=== PATIENT | female | born 1980 ===

== ENCOUNTER 2018-05-28 09:15 | Day surgery (SDC) | payer OTHER ==
[~2018-05-28] VITALS: Ht 162.6 cm; Wt 56.7 kg
[2018-05-28] VITALS (7 sets, daily range): BP systolic 111–139; BP diastolic 65–94
[~2018-05-28 09:15] MED LIST: Atropine Sulfate 0.4mg/ml inj IVP PRN; DiphenhydrAMINE 50mg/ml Inj IVP PRN; FERROUS SULFAT325 MG ORAL; Midazolam 2mg/2ml Inj IVP PRN; NORCO 10-325 T1 EACH ORAL; OMEPRAZOLE40 M1 ORAL; ZANTAC150 MG ORAL; fentaNYL 100 mcg/2 mL IV PRN
--- NOTE | 2018-05-28 10:37 | Short Stay Surgery H&P ---
History of Present Illness History of Present Illness Chief Complaint Abdominal pains/rectal bleeding/diarrhea HPI Dorota Uribe is a 38 year old female who was admitted on for Abdominal Pain, Gerd/diarrhea/rectal bleeding/GERDs Patient History Allergies: Coded Allergies: SUMATRIPTAN (Verified Adverse Reaction, Severe, Severe headache , 05/27/18) Medication History Scheduled Ferrous Sulfate* (Ferrous Sulfate*), 325 MG ORAL DAILY, (Reported) Omeprazole (Omeprazole), 40 MG ORAL DAILY, (Reported) Ranitidine Hcl* (Zantac*), 150 MG ORAL DAILY, (Reported) Scheduled PRN Hydrocodone Bit/Acetaminophen 10-325* ([place] 10-325*), 1 TAB ORAL QHS PRN for For Pain, (Reported) Review of Systems Cardiovascular: Reports: no symptoms Respiratory: Reports: no symptoms Skeletal: Reports: trauma Gastrointestinal: Reports: gastro esophageal reflux disease Genitourinary: Reports: no symptoms Neurologic: Reports: no symptoms Endocrine: Reports: no symptoms Hematologic: Reports: no symptoms, anemia Physical Exam HENT: normal Heart: normal Lungs: normal Abdomen: abnormal Extremities: normal Genitourinary: normal Plan Plan of Care Upper and lower GI endoscopies with obtaining biopsies Preop Interventions None Summary of Findings see the reports Attestation Are the patient's medical conditions optimized for surgery? Attestation Response: yes Mina Ellis MD May 28, 2018 10:37
--- NOTE | 2018-05-28 10:38 | Pre-Procedure Note/Attestation ---
Pre-Procedure Note/Attestation Complete Prior to Procedure Planned Procedure: left Procedure Narrative: Examiantion of the upper and the lower GI tract via endoscopy Indications for Procedure Pre-Operative Diagnosis: R/O Peptic Ulcer/Ulcers/colitis/hemorrhoids Attestation I attest that I discussed the nature of the procedure; its benefits; risks and complications; and alternatives (and the risks and benefits of such alternatives ), prior to the procedure, with the patient (or the patient's legal telemarketing sales representative). I attest that, if there was a reasonable possibility of needing a blood transfusion, the patient (or the patient's legal telemarketing sales representative) was given the [facility] standardized written summary, pursuant to the Mahesh Barnwell Blood Safety Act ([place] Health and Safety Code # 1645, as amended). I attest that I re-evaluated the patient just prior to the surgery and that there has been no change in the patient's H&P, except as documented below: Mina Ellis MD May 28, 2018 10:38
[2018-05-28] MEDS ORDERED: Propofol 200mg/20ml IV ONE (11:30)
[2018-05-28] MEDS ORDERED: LR 1000ml ONE (11:30)
[2018-05-28] MEDS ORDERED: Esmolol 100mg/10ml Inj ONE (11:30)
[2018-05-28] MEDS ORDERED: Lidocaine 1% MPF 10mg/ml 5ml ONE (11:30)
--- NOTE | 2018-05-28 11:32 | Discharge Instructions ---
Discharge Instructions Discharge Instructions Follow up with: visit the doctor after 2 weeks in the office, call first For Congestive Heart Failure Reminder Report to your physician any weight gain of 5 pounds or more in one week. Mina Ellis MD May 28, 2018 11:31
--- NOTE | 2018-05-28 12:24 | Endoscopy Procedure Note ---
Endoscopy Procedure Note General Indication for Procedure: Abdominal pains/GERDs, rectal bleeding/diarrhea Procedures Performed: EGD - Small allen's segment biopsed; otherwise completely normal upper GI. endoscopy, biopsy was done per random from gastric body., colonoscopy - Minimal Internal hermorrhoids otherwise completely normal total colonoscopy. Specimen: yes Pt Tolerated Procedure Well: Yes Estimated Blood Loss: none Anesthesia Anesthesiologist: Dr. Raya Anesthesia: moderate sedation Medications Medication Given: see anesthesia record Inserted Devices Implant(s) used?: No Quality Quality of Bowel Preparation: Excellent Did scope reach the cecum?: Yes Was there any complications?: No GI Core Measures 50 yrs or older w/o bx or poly: No 10yrs. F/U not recommended: No 10 yrs. F/U needed: Yes 18 years or older w/prev. colo: No <3yrs. since last colonoscopy: No Med reason:<3 yrs.: System Reason:<3 yrs.: Mina Ellis MD May 28, 2018 12:24
--- NOTE | 2018-05-28 13:02 | Anethesia Preoperative Eval ---
Anesthesia Pre-op PMH/ROS General Date of Evaluation: May 28, 2018 Time of Evaluation: 11:24 Anesthesiologist: tonio ASA Score: ASA 3 Mallampati Score Class I : Soft palate, uvula, fauces, pillars visible Class II: Soft palate, uvula, fauces visible Class III: Soft palate, base of uvula visible Class IV: Only hard plate visible Mallampati Classification: Class II Surgeon: rosario Diagnosis: abdominal pain, gerd Surgical Procedure: egd/colonoscopy Anesthesia History: none Social History: smoking - former smoker Family History: no anesthesia problems Allergies: Coded Allergies: SUMATRIPTAN (Verified Adverse Reaction, Severe, Severe headache , 05/27/18) Medications: see eMAR Patient NPO?: Yes Past Medical History Cardiovascular: Reports: HTN, other - lvh Gastrointestinal/Genitourinary: Reports: GERD, other - lmp 05/19/2018 Neurologic/Psychiatric: Reports: other - crps, viral meningitis Hematology/Immune: Reports: anemia PSxH Narrative: tonsillectomy, c/s Anesthesia Pre-op Phys. Exam Physician Exam Last Vital Signs Date Time Temp Pulse Resp B/P (MAP) Pulse Ox O2 Delivery O2 Flow Rate FiO2 05/28/18 12:50 94 18 114/66 100 Nasal Cannula 3 05/28/18 12:45 98.1 Constitutional: NAD Neurologic: CN 2-12 intact Cardiovascular: RRR Respiratory: CTA Gastrointestinal: S/NT/ND Airway Exam Mallampati Score: Class II MO: limited Neck: flexible TMD: 2fb ROM: limited Teeth: intact Anesthesia Pre-op A/P Risk Assessment & Plan Assessment: asa3 Plan: mac Status Change Before Surgery: No Pre-Antibiotics Drug: Lorie Ardon MD May 28, 2018 13:02
--- NOTE | 2018-05-28 13:05 | Immediate Post-Op Evaluation ---
Immediate Post-Op Evalulation Immediate Post-Op Evalulation Procedure: egd/colonoscopy/bx Date of Evaluation: May 28, 2018 Time of Evaluation: 12:57 IV Fluids: 800ml lr Blood Products: none Estimated Blood Loss: negligible Blood Pressure Systolic: 114 Blood Pressure Diastolic: 66 Pulse Rate: 95 Respiratory Rate: 18 O2 Sat by Pulse Oximetry: 100 Temperature (Fahrenheit): 98.1 Pain Score (1-10): 0 Nausea: No Vomiting: No Complications none Patient Status: awake, reacts, patent Hydration Status: adequate Drug: Lorie Ardon MD May 28, 2018 13:04
--- NOTE | 2018-05-28 13:06 | 48 Hour Post Anesthesia Eval ---
Post Anesthesia Evaluation Procedure: egd/colonoscopy/bx Date of Evaluation: May 28, 2018 Time of Evaluation: 12:59 Blood Pressure Systolic: 114 0: 66 Pulse Rate: 94 Respiratory Rate: 18 Temperature (Fahrenheit): 98.1 O2 Sat by Pulse Oximetry: 100 Airway: patent Nausea: No Vomiting: No Pain Intensity: 0 Hydration Status: adequate Cardiopulmonary Status: stable Mental Status/LOC: patient returned to baseline Post-Anesthesia Complications: none Follow-up care needed: N/A Lorie Raya MD May 28, 2018 13:06
--- NOTE | 2018-05-28 18:16 | Operative Note - Dictated ---
DATE OF OPERATION: 05/28/2018 SURGEON: Mina Ellis M.D. PROCEDURE: Esophagogastroduodenoscopy with biopsy. PREOPERATIVE DIAGNOSES: Epigastric pain, abdominal pain, gastroesophageal acid reflux. POSTOPERATIVE DIAGNOSIS: A small Pritchard's mucosa of 3 mm, biopsied. Otherwise, completely normal upper GI endoscopy. Biopsy was taken per random from gastric body as well. MEDICATIONS USED: Per Dr. Morel, anesthesiologist. INSTRUMENT: GIF Olympus upper GI video endoscope. DESCRIPTION OF PROCEDURE: The patient after arriving in the endoscopy unit, was told about risks and benefits of the procedure, which she accepted and signed informed consent. She was then put on the left lateral decubitus position. After adequate IV sedation, the scope was gently passed through the cricopharyngeal area, was lodged into the upper esophagus, and gradually advanced towards gastroesophageal junction. The entire length of the esophagus was normal; however, there was evidence of 3 to 4 mm Pritchard's mucosa in the lower esophagus at 4 o'clock. This was biopsied and subsequently the bleeding site was irrigated with epinephrine solution. At this point, the scope was advanced into the stomach. Gastric cavity was distended with insufflation of air. The areas of the fundus and the body and the antrum were examined and revealed no abnormality. There was no any evidence of gastritis, peptic ulcer disease, or polyps tumors etc. At this point, one random biopsy from the gastric area was obtained and subsequently scope was passed through the antrum. Pyloric channel, first and second portion of duodenum were found to be all completely normal. Finally, the scope was pulled out and the procedure was terminated. The patient tolerated the procedure well. Mina Ellis M.D. DR: GRIFFIN JOB#: [id number] CC:
--- NOTE | 2018-05-28 18:16 | Operative Note - Dictated ---
DATE OF OPERATION: 05/28/2018 PROCEDURE: Total colonoscopy. PREOPERATIVE DIAGNOSES: Abdominal pain, diarrhea, and rectal bleeding. POSTOPERATIVE DIAGNOSIS: Minimal internal hemorrhoids, otherwise completely normal total colonoscopy. MEDICATION USED: Per Dr. Morel, anesthesiologist. INSTRUMENT: GIF Olympus video colonoscope. DESCRIPTION OF PROCEDURE: The patient after arriving an endoscopy unit, was told about risks and benefits of the procedure, which she accepted and signed informed consent. At this time, she was put in the left lateral decubitus position and after adequate IV sedation, the scope was gently passed through the anal area and examination of this section revealed evidence of minimal internal hemorrhoids, which were not friable at this point. The rest of the rectum also was quite normal. No evidence of any abnormality such as colitis, polyps, tumors, etc. found. Finally, the scope was gradually passed through rather redundant left colon reaching towards the splenic flexure, transverse colon, hepatic flexure, and finally was guided into the right colon all the way to the base of the cecum. All these areas also remained to be completely normal with no any abnormalities found such as tumors, polyps, colitis, strictures, etc. The colon cleanup was adequate and satisfactory and at this point within 5 to 6 minutes, the scope was gradually pulled out and reexamination of the colon did not reveal any other abnormalities. The patient tolerated the procedure well and left the endoscopy room in a good condition. Said Virgil Ellis DR: TAYLOR JOB#: [id number] CC:
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
== END 2018-05-28 13:30 | disposition home or self-care (01) ==
LOC: GAS 09:15
DX: K64.8 Other hemorrhoids (principal); R19.7 Diarrhea, unspecified; K29.50 Unspecified chronic gastritis without bleeding; K21.9 Gastro-esophageal reflux disease without esophagitis; Z88.8 Allergy status to other drugs, medicaments and biological substances
CPT/HCPCS: 43239; 45378; J0171; J0360; J2704; 94003; 94150